=== PATIENT | male | born 1995 | race Hispanic/Latino ===

== ENCOUNTER 2022-04-17 05:21 | Emergency (ER) | payer OTHER, SELFPAY ==
[2022-04-17] MEDS ORDERED: Morphine 2 MG/ML VIAL ONE (05:32)
[2022-04-17] MEDS ORDERED: Proparacaine 0.5% Opth 15 ML BOT ONE (05:33)
[2022-04-17] MEDS ORDERED: Ketorolac Tromethamine 30 MG/ML VIAL ONE (05:33)
[2022-04-17] MEDS ORDERED: CEFAZOLIN 1 GM VIAL ONE (05:33)
[2022-04-17] MEDS ORDERED: Acetaminophen 500 MG TAB ONE (05:33)
[2022-04-17] MEDS ORDERED: Fluorescein Opthalmic Strip ONE (05:37)
[2022-04-17] MEDS ORDERED: Lidocaine 1% w/Epinephrine 1:100K 20 ML VIAL ONE (06:31)
[2022-04-17] MEDS ORDERED: Bacitracin 1 PK ONE (08:11)
== END 2022-04-17 09:36 | disposition home or self-care (01) ==
LOC: ERS 05:21
DX: S01.01XA Laceration without foreign body of scalp, initial encounter (principal); Y04.8XXA Assault by other bodily force, initial encounter
CPT/HCPCS: 12004; 12011; 70450; 70486; 72125; 96374; 96375; J0690; J1885; J2272